=== PATIENT | female | born 1995 | race Caucasian/White ===

== ENCOUNTER 2019-12-21 11:00 | Outpatient (CLI) | payer BC, OTHER ==
[2019-12-21] VITALS (8 sets, daily range): BP systolic 107–118; BP diastolic 55–66
[~2019-12-21] VITALS: Ht 158 cm; Wt 65.3 kg
--- NOTE | 2019-12-21 11:10 | NUR ---
MARY BRODERICK presented to unit via from ED, accompanied by sig O, with c/o ABD PAIN. MARY BRODERICK weighed, gowned, voided, and to bed. EFHM and TOCO applied, VS taken. MARY BRODERICK oriented to bed controls, call light, TV, heat, and A/C controls.
--- NOTE | 2019-12-21 11:45 | NUR ---
Notified Dr Zuniga pt arrived c/o of abdominal pain x 6 days increase in pain today. No record available at this time. Pt reports she is 27 weeks EDC 03/19/19. She is seeing Dr Lyn for care. Pt denies bleeding, no fluid leak. No s/s of UTI. Pt reports taking Ampicillin for tooth infection. Started today. AB1, SVE 3cm 100% +1 station. Non vertex. No contractions palpated and none traced on external. Pt very uncomfortable and writhing in bed. Orders received.
--- NOTE | 2019-12-21 11:59 | NUR ---
Notified Dr Zuniga via Chaparrita Rangel RN pt remains very uncomfortable and reports cramping. Acting like labor. Pain coming and going. Orders received for Betamethasone and Terbutaline.
[2019-12-21] MEDS ORDERED: BETAMETHASONE ACE/NA PHOS 6 MG/ML (CELESTONE SOLUSPAN) IM SCH (12:15)
[2019-12-21] MEDS ORDERED: BUTORPHANOL INJ 2 MG/ML (STADOL) VIAL IV PRN (12:15)
[2019-12-21] MEDS ORDERED: LACTATED RINGERS 1,000 ML IV SCH ×2 (12:15→13:00)
[2019-12-21] MEDS ORDERED: TERBUTALINE INJ 1 MG/ML (BRETHINE) AMP SC ONE (12:15)
--- NOTE | 2019-12-21 12:27 | NUR ---
Dr Zuniga here to see pt.
--- NOTE | 2019-12-21 12:33 | NUR ---
Dr Zuniga notified [facility] for transfer. Dr Raheel rincon accepting care.
--- NOTE | 2019-12-21 12:57 | History & Physical-OB ---
OB - Chief Complaint & HPI Date/Time Date of Admission: Date of Admission: Date seen by a Provider: Dec 21, 2019 Time Seen by a Provider: 12:30 Chief Complaint/History OB-Reason for Admission/Chief: Onset of Labor (premature) Hx : 2 Hx Para: 0 Expected Date of Delivery: Mar 19, 2020 Gestational Age in Weeks: 27 Gestational Age in Days: 0 History of Labs no GBS as of yet Other 24-year-old 2para 0 currently at 27 weeks gestation who presents to labor and delivery at [facility] with abdominal pain. After evaluation it was apparent that these were rhythmic abdominal pains. She has received some of her care through [facility]. She had 2 ultrasounds performed there. The reports are not available since we do not have her records. She has not had GBS status nor has she had her on hour glucose challenge test. Allergies and Home Medications Allergies Coded Allergies: No Known Drug Allergies (Unverified , 12/21/19) Patient Home Medication List Home Medication List Reviewed: Yes OB - History Hx of Present Care: Yes (at [facility] 1 visit) Ultrasounds: Normal mid trimester US Obstetrical Complications: None Medical Complications: None Patient Past Medical History no chronic medical problems OB - Admission Exam Physical Exam HEENT: Moist Membranes Abdomen: Gravid Cervical Dilatation: 3cm Effacement: 100% Station: -1 Membranes: Intact Heart Rate: 140's Short Term Variability: Present Contractions on Admission: < 5 Minutes Apart Intensity: Moderate OB - Assessment/Plan/Diagnosis Assessment Assessment: active labor, IUP - (with labor as evident by cervical change) Admission Dx Transfer to [place] under care of Dr Kevin Schwartz. Time of contact 1240. We'll proceed with magnesium sulfate 4 g bolus followed by 2 g/h. She has IV fluids running lactated Ringer's at 150 mL/h. Admission Status: Observation SARAH BATEMAN MD Dec 21, 2019 12:57
[2019-12-21] MEDS ORDERED: MAGNESIUM 4 GM/100 ML IVPB 100 ML IV SCH (13:00)
[2019-12-21] MEDS ORDERED: CALCIUM GLUC. 10% 4.65 MEQ/10 ML VIAL IV PRN (13:00)
--- NOTE | 2019-12-21 13:00 | NUR ---
[facility] notified for transferred.
--- NOTE | 2019-12-21 13:02 | Discharge Inst-Simple/Standard ---
Discharge Inst-Standard Reconcile Patient Problems Problems Reviewed?: Yes Discharge Medications New, Converted or Re-Newed RX: Other Patient Instructions/Follow Up Plan of Care/Instructions/FU: Transfer to [facility] under care of Dr Kevin Schwartz. Activity as Tolerated: No (rest) Discharge Diet: Other Diet (NPO) SARAH BATEMAN MD Dec 21, 2019 13:02
[2019-12-21 13:19] LABS: BASOPHILS % (AUTO) 0 % (0-10); EOSINOPHILS % (AUTO) 0 % (0-10); HEMATOCRIT 34 % (35-52); HEMOGLOBIN 12.5 g/dL (11.5-16.0); LYMPHOCYTES # (AUTO) 1.6 10^3/uL (1.0-4.0); LYMPHOCYTES % (AUTO) 23 % (12-44); MEAN CORPUSCULAR HEMOGLOBIN 33 pg (25-34); MEAN CORPUSCULAR HGB CONC 37 g/dL (32-36); MEAN CORPUSCULAR VOLUME 90 fL (80-99); MEAN PLATELET VOLUME 10.5 fL (9.0-12.2); MONOCYTES # (AUTO) 0.4 10^3/uL (0.0-1.0); MONOCYTES % (AUTO) 5 % (0-12); NEUTROPHILS # (AUTO) 4.9 10^3/uL (1.8-7.8); NEUTROPHILS % (AUTO) 71 % (42-75); PLATELET COUNT 244 10^3/uL (130-400); WHITE BLOOD COUNT 6.9 10^3/uL (4.3-11.0)
--- NOTE | 2019-12-21 13:20 | NUR ---
Discussed POC and transfer with pt and FOB.
[2019-12-21] MEDS ORDERED: MAGNESIUM SULFATE DRIP 500 ML IV SCH (13:25)
--- NOTE | 2019-12-21 13:46 | NUR ---
This nurse called report to [facility]. Jessica Bell RN accepting report. Pt will go to room 7. Reported all meds ,labs , SVE, IV, contraction pattern and FHT's.
--- NOTE | 2019-12-21 13:50 | NUR ---
1350 EMS here and assuming care of pt. Report given to Jesus Guerra Cataloging Assistant. 1400 SVE done via Chaparrita Rangel RN. No change. Called results to [place]. 1405 EMS to pt's room. I discussed visitation at [place] with FOB. FOB verbalized understanding. FOB declined map to [place] will use his GPS. 1410 Monitor dcd. EMS transferred [facility] and secured with belts. IV infusing without difficulty and intransit. Mcghee patent clear yellow urine to DD. Pt cooperative and tearful. 1415 Pt left floor with EMS. FOB at side.
--- NOTE | 2019-12-21 14:00 | NUR ---
300cc of clear yellow urine per gutierrez.
--- NOTE | 2019-12-21 14:30 | NUR ---
This nurse accompanied pt and EMS on Ambulance transfer. Stadol 1 mg given IV push via Jesus Guerra.
== END 2019-12-21 14:15 | disposition designated cancer center or children's hospital (05) ==
LOC: LDRP 11:00 → WSo 11:00
PROVIDERS: ATTEND Family Medicine
DX: O26.899 Other specified pregnancy related conditions, unspecified trimester (principal)
CPT/HCPCS: 85025; 86850; 86900; 86901; 96361; 96372; 96374; 96375; 96376; G0463; 36415; 99214

== ENCOUNTER 2020-07-03 13:16 | Emergency (ER) | payer BC ==
[~2020-07-03] VITALS: Ht 155 cm; Wt 65.0 kg
--- NOTE | 2020-07-03 13:27 | ED GU-Female ---
General Chief Complaint: Female Reproductive Stated Complaint: VAGINAL SWELLING/ITCHING/BURNING History of Present Illness Date Seen by Provider: July 03, 2020 Time Seen by Provider: 13:27 Initial Comments 24-year-old female presents with vaginal swelling, itching, burning. Patient was seen 4 days ago and diagnosed with a yeast infection and started on topical yeast medication. She reports since then is gotten worse. She does have a history of the past of vaginal herpes. Patient reports that she noticed some lesions/ulcerations couple days ago that have worsened. Patient had an acyclovir prescription from 2017 that she started. He has had 2 days of that. No fevers or chills. She reports due to the irritation of the ear area there is significant burning when she urinates but no urinary tract infection. Patient had negative test at that time has not had intercourse since then. Allergies and Home Medications Allergies Coded Allergies: No Known Drug Allergies (Unverified , 12/21/19) Home Medications Acyclovir 400 Mg Tablet, 400 MG PO TID Prescribed by: JULIAN BORJA on 07/03/20 1339 Fluconazole 150 Mg Tablet, 150 MG PO ONCE Prescribed by: JULIAN BORJA on 07/03/20 1339 Patient Home Medication List Home Medication List Reviewed: Yes Review of Systems Review of Systems Constitutional: No chills, No fever EENTM: no symptoms reported Respiratory: no symptoms reported Gastrointestinal: no symptoms reported Genitourinary: see HPI : No Musculoskeletal: no symptoms reported Skin: see HPI Psychiatric/Neurological: No Symptoms Reported Past Kmquedz-Abtyzy-Sxfbgn Hx Past Med/Social Hx: Reviewed Nursing Past Med/Soc Hx Patient Social History Type Used: Electronic/Vapor 2nd Hand Smoke Exposure: No Physical Exam Vital Signs Vital Signs - First Documented 07/03/20 13:32 Temp 36.7 Pulse 118 Resp 18 B/P (MAP) 116/78 (91) Pulse Ox 97 O2 Delivery Room Air Capillary Refill : Height, Weight, BMI Height: '" Weight: lbs. oz. kg; 26.15 BMI Method: General Appearance: mild distress HEENT: PERRL/EOMI Cardiovascular: normal peripheral pulses, regular rate, rhythm Respiratory: lungs clear, normal breath sounds Gastrointestinal: non tender, soft Genital/Rectal: other (Labial swelling, erythema and irritation) Pelvic: lesions (Multiple ulcerations consistent with herpes) Extremities: normal range of motion, non-tender Neurologic/Psychiatric: alert, normal mood/affect, oriented x 3 Skin: normal color Progress/Results/Core Measures Suspected Sepsis SIRS Temperature: Pulse: Respiratory Rate: Blood Pressure / Mean: Results/Orders Vital Signs/I&O 07/03/20 13:32 Temp 36.7 Pulse 118 Resp 18 B/P (MAP) 116/78 (91) Pulse Ox 97 O2 Delivery Room Air Capillary Refill : Progress Note : Time: 13:34 Progress Note Patient with genital herpes. Due to irritation of the area I will also orally treat her for her yeast infection. Patient stable discharged home. She will be prescribed a new dose of acyclovir. She should follow-up with her primary care provider in a few days for recheck of her symptoms Departure Impression Primary Impression: Genital herpes Qualified Codes: A60.04 - Herpesviral vulvovaginitis Additional Impression: Yeast infection involving the vagina and surrounding area Disposition: HOME, SELF-CARE Condition: Stable Departure-Patient Inst. Referrals: MARY TAPIA MD (PCP/Family) Primary Care Physician Patient Instructions: Genital Herpes, Yeast Infection (DC) Add. Discharge Instructions: Follow-up with your primary care provider in 3 to 4 days for recheck of today's symptoms All discharge instructions reviewed with patient and/or family. Voiced understanding. Scripts Fluconazole (Fluconazole) 150 Mg Tablet 150 MG PO ONCE, #1 TAB Prov: JULIAN BORJA DO 07/03/20 Acyclovir (Acyclovir) 400 Mg Tablet 400 MG PO TID, #30 TAB Prov: JAIME BORJAR Alda DO 07/03/20 JULIAN BORJA DO July 03, 2020 13:27
[2020-07-03 13:32] VITALS: BP 116/78
[2020-07-03] MEDS ORDERED: ACYC400T21 PO (13:39)
[2020-07-03] MEDS ORDERED: FLUC150T2 PO (13:39)
== END 2020-07-03 13:40 | disposition home or self-care (01) ==
LOC: EDUNIT# 13:16 → ER FS 13:18
DX: A60.04 Herpesviral vulvovaginitis (principal); B37.3 Candidiasis of vulva and vagina
CPT/HCPCS: 99284